=== PATIENT | male | born 1940 | race Hispanic/Latino ===

== ENCOUNTER 2016-12-02 09:05 | Outpatient (CLI) | payer MEDICARE, OTHER ==
--- NOTE | 2016-12-02 11:13 | Cat Scan Report ---
CT CHEST, ABDOMEN AND PELVIS WITH CONTRAST: 12/02/16 CLINICAL: Malignant neoplasm ascending colon. COMPARISON: 12/10/15 TECHNIQUE: Volumetric acquisition and 1.25 millimeter scan reconstructions after the uneventful intravenous injection of 100 cc of Omnipaque 300. Consent was obtained prior to the administration of the contrast. Oral contrast was also given. FINDINGS: Chest: A 2 mm right upper lobe calcified granuloma no other lung nodule. Stable elevation of the right knee diaphragm and right lower lobe subsegmental atelectasis. Normal aorta, heart and pulmonary arteries. Normal esophagus and trachea. No mediastinal or hilar lymphadenopathy.No axillary or supraclavicular lymphadenopathy. Abdomen: Stable small liver with a small left lobe. No liver mass. Contracted gallbladder with stones. Normal bile ducts. Normal stomach, duodenum, pancreas and spleen. Normal adrenal glands. Small bilateral renal cysts. The renal collecting systems are nondilated. Stable ectasia, calcification and tortuosity of the abdominal aorta. Normal inferior vena cava. No lymphadenopathy.No ascites.Normal small bowel. Status post right colectomy with a normal ileotransverse anastomosis. No ascites. Pelvis: Normal urinary bladder and rectum.Sigmoid diverticulosis but no diverticulitis. Normal prostate and seminal vesicles. No pelvic mass or lymphadenopathy. Bone windows demonstrate no suspicious bone lesion. IMPRESSION:No evidence of disease recurrence or metastasis. Cholelithiasis. Diverticulosis but no diverticulitis.
== END 2016-12-02 09:06 | disposition home or self-care (01) ==
LOC: SPVIMAG 09:05
PROVIDERS: ATTEND Internal Medicine Hematology
DX: C18.2 Malignant neoplasm of ascending colon (principal); N28.1 Cyst of kidney, acquired; K80.20 Calculus of gallbladder without cholecystitis without obstruction; K57.30 Diverticulosis of large intestine without perforation or abscess without bleeding; J84.10 Pulmonary fibrosis, unspecified; J98.11 Atelectasis; Q79.1 Other congenital malformations of diaphragm; Z90.49 Acquired absence of other specified parts of digestive tract
CPT/HCPCS: 71260; 74177; Q9967

== ENCOUNTER 2017-05-30 09:58 | Outpatient (CLI) | payer MEDICARE, OTHER ==
--- NOTE | 2017-05-30 11:44 | Fluoroscopy Report ---
Chest fluoroscopy with image: The patient presents with history of elevated right hemidiaphragm on recent chest x-ray. It is of note that we have an x-ray from 2015 also demonstrating elevation of right hemidiaphragm. On fluoroscopic visualization the patient's diaphragm does not move with normal inspiration and expiration. With a sniff test the right hemidiaphragm moves paradoxically. Impressions: Chronic paralysis of right hemidiaphragm.
== END 2017-05-30 09:59 | disposition home or self-care (01) ==
LOC: FLUORO 09:58
PROVIDERS: ATTEND Internal Medicine Critical Care Medicine
DX: J98.6 Disorders of diaphragm (principal); I11.0 Hypertensive heart disease with heart failure; I50.9 Heart failure, unspecified
CPT/HCPCS: 71023

== ENCOUNTER 2017-06-21 05:55 | Inpatient (IN) | payer MEDICARE, OTHER ==
[2017-06-21 06:50] LABS: Basophils % (Auto) 0.5 % (0.0-1.8); Eosinophils % (Auto) 3.4 % (0.0-4.3); Hematocrit 46.7 % (35.5-45.6); Hemoglobin 15.2 gm/dl (11.8-15.2); Mean Corpuscular HGB Conc 33 % (32-34); Mean Corpuscular Hemoglobin 30 pg (28-32); Mean Corpuscular Volume 92 fl (84-94); Platelet Count 302 K/mm3 (140-440); Red Blood Count 5.06 M/mm3 (3.65-5.03); Red Cell Distribution Width 14.8 % (13.2-15.2); White Blood Count 8.5 K/mm3 (4.5-11.0)
[2017-06-21 06:54] LABS: Anion Gap 20 mmol/L; Blood Urea Nitrogen 18 mg/dL (9-20); Calcium 8.5 mg/dL (8.4-10.2); Carbon Dioxide 22 mmol/L (22-30); Chloride 102.2 mmol/L (98-107); Glucose 97 mg/dL (75-100); Potassium 4.4 mmol/L (3.6-5.0); Sodium 140 mmol/L (137-145)
--- NOTE | 2017-06-21 07:53 | XRay Report ---
ROUTINE CHEST, TWO VIEWS: HISTORY: Shortness of breath. Previous CABG changes are noted. A left [id number] terminates in the mid SVC. The trachea, heart, mediastinal contour, lung orourke and bony thorax are unremarkable. IMPRESSION: Unremarkable chest x-ray. No significant change since 10/14/15.
--- NOTE | 2017-06-21 10:25 | Emergency Department Report ---
HPI - General Chief Complaint: Chest Pain Time Seen by Provider: 06/21/17 09:22 - HPI HPI: 76-year-old male with a history of coronary artery disease presents to ED with left-sided chest pain, pressure-like, starting at 5 this morning and all chemotherapy from sleep. Patient stated pain was 10 out of 10 on onset, he took 2 nitroglycerin pills and after the second one the pain is currently 4 out of 10. Patient had mild nausea on onset of pain, but doesn't have any current nausea. Patient denies any shortness of breath, diaphoresis, arm pain. Patient denies any alleviating or exacerbating factors. Patient has prior symptoms of similar pains in the past due to angina. ED Past Medical Hx - Past Medical History Previous Medical History?: Yes Hx Hypertension: Yes Hx Heart Attack/AMI: Yes (1989) Additional medical history: ABDOMINAL HERNIA, 45% colon removed - Surgical History Past Surgical History?: Yes Hx Open Heart Surgery: Yes ( -2003) - Social History Smoking Status: Former Smoker Substance Use Type: None - Medications Home Medications: Home Medications Medication Instructions Recorded Confirmed Last Taken Type Aspirin [Aspirin BABY CHEW TAB] 81 mg PO QDAY 10/14/15 06/21/17 06/20/17 History AtorvaSTATin [Lipitor] 40 mg PO QDAY 10/14/15 06/21/17 06/20/17 History Clopidogrel [Plavix] 75 mg PO QDAY 10/14/15 06/21/17 06/20/17 History Ezetimibe [Zetia] 10 mg PO QDAY 10/14/15 06/21/17 06/20/17 History ED Review of Systems ROS: Stated complaint: CHEST PAIN Other details as noted in HPI Comment: All other systems reviewed and negative Cardiovascular: chest pain Gastrointestinal: as per HPI Physical Exam - Physical Exam Vital Signs: Vital Signs 06/21/17 06/21/17 06/21/17 06:07 07:06 07:11 Temperature 98.8 F Pulse Rate 87 117 H 75 Respiratory 18 17 21 Rate Blood Pressure 153/83 146/92 O2 Sat by Pulse 97 93 Oximetry 06/21/17 06/21/17 06/21/17 07:21 07:30 07:40 Temperature Pulse Rate 77 73 Respiratory 21 19 18 Rate Blood Pressure 156/73 147/83 O2 Sat by Pulse 95 94 98 Oximetry 06/21/17 06/21/17 06/21/17 07:41 07:51 08:00 Temperature Pulse Rate 73 74 71 Respiratory 22 20 19 Rate Blood Pressure 147/83 144/83 145/83 O2 Sat by Pulse 95 94 94 Oximetry 06/21/17 08:11 Temperature Pulse Rate 74 Respiratory 25 H Rate Blood Pressure 145/83 O2 Sat by Pulse 94 Oximetry Physical Exam: - General Limitations: No Limitations General appearance: alert, in no apparent distress - Head Head exam: Present: atraumatic, normocephalic - Eye Eye exam: Present: normal appearance - ENT ENT exam: Present: mucous membranes moist - Neck Neck exam: Present: normal inspection - Respiratory Respiratory exam: Present: normal lung sounds bilaterally. Absent: respiratory distress - Cardiovascular Cardiovascular Exam: Present: regular rate, normal rhythm. Absent: systolic murmur, diastolic murmur, rubs, gallop - GI/Abdominal GI/Abdominal exam: Present: soft, normal bowel sounds - Extremities Exam Extremities exam: Present: normal inspection - Back Exam Back exam: Present: normal inspection - Neurological Exam Neurological exam: Present: alert, oriented X3, CN II-XII intact - Psychiatric Psychiatric exam: Present:normal affect - Skin Skin exam: Present: warm, dry, intact, normal color. Absent: rash ED Course Vital Signs 06/21/17 06/21/17 06/21/17 06:07 07:06 07:11 Temperature 98.8 F Pulse Rate 87 117 H 75 Respiratory 18 17 21 Rate Blood Pressure 153/83 146/92 O2 Sat by Pulse 97 93 Oximetry 06/21/17 06/21/17 06/21/17 07:21 07:30 07:40 Temperature Pulse Rate 77 73 Respiratory 21 19 18 Rate Blood Pressure 156/73 147/83 O2 Sat by Pulse 95 94 98 Oximetry 06/21/17 06/21/17 06/21/17 07:41 07:51 08:00 Temperature Pulse Rate 73 74 71 Respiratory 22 20 19 Rate Blood Pressure 147/83 144/83 145/83 O2 Sat by Pulse 95 94 94 Oximetry 06/21/17 08:11 Temperature Pulse Rate 74 Respiratory 25 H Rate Blood Pressure 145/83 O2 Sat by Pulse 94 Oximetry ED Medical Decision Making - Lab Data Result diagrams: 06/21/17 06:21 06/21/17 06:21 Critical care attestation.: If time is entered above; I have spent that time in minutes in the direct care of this critically ill patient, excluding procedure time. ED Disposition Clinical Impression: Chest pain Qualifiers: Chest pain type: other chest pain Qualified Code(s): R07.89 - Other chest pain Disposition: OP ADMIT IP TO THIS HOSP Is pt being admited?: Yes Does the pt Need Aspirin: No Condition: Stable Instructions: Chest Pain (ED) Referrals: PRIMARY CARE,MD [Primary Care Provider] - 3-5 Days
--- NOTE | 2017-06-21 10:57 | Admit Criteria Form ---
Admission Criteria Documentation: CARDIOLOGY GRG Clinical Indications for Admission to Inpatient Care ([place]/check or initial the applicable condition/criteria) Hospital admission is needed for appropriate care of the patient because of ANY ONE of the following: [ ] I. Hemodynamic instability as indicated by ALL of the following (1)(2)(3) (4)(5)(6)(7)(8)(9)(10) [ ]a) Vital sign abnormality not readily corrected by appropriate treatment with 12-24 hours for ANY ONE: [ ]i) Hypotension that persists despite appropriate treatment (eg, volume repletion) [ ]ii) Tachycardiathat persists despite appropriate tx ( e.g., analgesia, fluids, sedation as indicated [ ]iii) Orthostatic vital sign changes that persists despite appropriate treatment (eg, volume repletion) [ ]b) Vital sign abnormailty that is severe indicated by ANY ONE of the following: [ ]i) Inadequate perfusion indicated by ANY ONE of the following: [ ] 1) Lactic acidosis (> 2 mmol/L) [ ] 2) New abnormal capillary refill (> 3 seconds) [ ] 3) Reduced urine output [ ] 4) New altered mental status [ ] 5) Myocardial Ischemia [ ] 6) Other metabolic acidosis (arterial pH <7.35 ) not otherwise explained. [ ]ii) Mean arterial pressure[A] less than 60 mm Hg [ ]iii) Mean arterial pressure[A] less than 70 mm Hg after 30 minutes of appropriate treatment (eg, fluid resuscitation) [ ]iv) Sustained heart rate greater than 120 beats per minute in adult or child 6 years or older[B] [ ]v) IV inotropic or vasopressor medication required to maintain adequate blood pressure or perfusion [ ] II. Severe heart failure as indicated by ANY ONE of the following(17)(18) [ ]a) Respiratory distress [ ]b) Hypotension [ ]c) Debilitating anasarca refractory to therapy (eg, tissue breakdown with infection)[C](19) [ ]d) Cardiac arrhythmias of immediate concern [ ]e) Myocardial ischemia [ ] III. Cardiac arrhythmias or findings of immediate concern indicated by ANY ONE of the following (21)(22): [ ] a) Heart rhythms that are inherently dangerous or unstable indicated by ANY ONE of the following (23)(24)(25): [ ] i) Resuscitated ventricular fibrillation or cardiac arrest [ ] ii) Ventricular escape rhythm [ ] iii) Sustained ventricular tachycardia (30 seconds or more of ventricular rhythm at greater than 100 beats per minute) [ ] iv) Nonsustained ventricular tachycardia and ANY ONE of the following: [ ] 1) Suspected cardiac ischemia as cause or consequence of ventricular tachycardia [ ] 2) Acute myocarditis [ ] b) Unstable cardiac conduction defects indicated by ANY ONE of the following(25)(26)(27) [ ] i) Type II second-degree atrioventricular block [ ]ii) Third-degree atrioventricular block [ ]iii) New-onset left bundle branch block with suspected myocardial ischemia [ ]c) Any heart rhythm and ANY ONE of the following (23)(24)(28)(29) (30) [ ] i) Continuous long-term ECG monitoring needed (e.g., initiation of drug requiring monitoring for more than 24 hours) [ ] ii) Patient has automatic implanted cardioverter defibrillator that is repeatedly firing, malfunctioning, or in need of immediate adjustment of settings beyond the scope of ambulatory or observation care [ ]d) Heart rhythms of concern due to ANY ONE of the following: [ ] i) Hypotension [ ] ii) Respiratory distress [ ] iii) Association with other significant symptoms (e.g., bradycardia with syncope or ongoing dizziness, supraventricular tachycardia with chest pain (28)(29)(31) [ ] IV. Monitoring for cardiac contusion beyond the scope of observation care needed [A](32)(33)(34) [ ] V. Surgical or device complication (e.g., valve replacement complication , ICD disfunction or pacemaker dysfunction) (49)(50)(51)(52)(53)(54) [ ] . Inpatient palliative care needed. [F](51)(52) Also use Inpatient Palliative Care Criteria [ ] VII. Nonbacterial thrombotic (marantic) endocarditis(43)(44)(55)(56)(57) [X] VIII. Cardiology condition, symptom, or finding for which emergency and observation care has failed or are not considered appropriate. [ ] IX. Acute valvular disease requiring inpatient as indicated by ANY ONE of the following (40)(41) [ ]a) Acute valvular regurgitation (42) [ ]b) Noninfectious valvulitis (43)(44) [ ]c) Obstructive valve thrombosis (45)(46) [ ]d) Paravalvular leak(47)(48) [ ]e) Other significant valvular disorder remaining after emergency or observation level of care (as appropriate) [ ]X. Pericardial disease requiring inpatient treatment as indicated by ANY ONE of the following (35)(36)(37)(38) [ ]a) Suspected tamponade [ ]b) Hemopericardium [ ]c) Other significant pericardial disorder remaining after emergency or observation level of care (as appropriate)(39) [ ] XI. Cardiac ischemia beyond scope of emergency and observation care. [ ] XII. Cyanotic heart disease requiring inpatient care as indicated by 1 or more of the following(58)(59)(60): [ ]a) Acute onset of hypoxemia [ ]b) Exacerbation [ ] XIII. Hypertension requiring inpatient treatment as indicated by ANYONE of the following(11)(12)(13)(14): [ ]a) Severe hypertension (SBP greater than 180 mm Hg or DBP greater than 110 mm Hg, or greater than the 95th percentile for age, gender, and height in pediatric patients) that cannot be controlled (eg, to SBP less than 160 mm Hg and DBP less than 100 mm Hg) by emergency department or observation care treatment(15) [ ]b) Acute end organ damage secondary to hypertension (SBP greater than 140 mm Hg or DBP greater than 90 mm Hg) as indicated by ANYONE of the following: [ ] i) Hypertensive encephalopathy (eg, Altered mental status)(16) [ ] ii) Cerebral infarction [ ] iii) Intracranial hemorrhage [ ] iv) Myocardial ischemia or infarction [ ] v) Heart failure (eg, pulmonary edema) [ ] vi) Aortic dissection [ ] vii) Increased creatinine (new) with reduction of more than 50% in estimated glomerular filtration rate from baseline [ ] viii) Papilledema [ ] ix) Retinal hemorrhage [ ] x) Microangiopathic hemolytic anemia [ ] xi) Seizure [ ] xii) Other significant finding secondary to hypertension [ ] XIV. Complications of transplanted heart indicated by ANY ONE of the following(61): [ ]a) Acute graft rejection requiring inpatient management (eg, intravenous imunosuppression)(62)(63) [ ]b) Acute graft heart failure indicated by ANY ONE of the following(64): [ ] i) Hemodynamic instability [ ] ii) Cardiac arrhythmias of immediate concern [ ] iii) Pulmonary edema that is very severe (eg, mechanical ventilation needed, imminent or likely, need for 100% oxygen to keep oxygen saturation above 90%) [ ] iv) Pulmonary edema that is persistent as indicated by ALL of the following: [ ] 1) New need for oxygen therapy to keep oxygen saturation above 90 % (or increased FiO2 need from baseline) [ ] 2) Has not improved sufficiently with emergency department or observation care IV diuretics or other heart failure treatments[E]. [ ] iv) Altered mental status that is severe or persistent [ ] iv) Increased creatinine (new on laboratory test) with reduction of more than 50% in estimated glomerular filtration rate from baseline [ ] iv) Progressively (ongoing) rising creatinine (known from past laboratory test) with reduction of more than 25% in estimated glomerular filtration rate from baseline [ ] iv) Acute renal failure [ ] iv) Acute peripheral ischemia (eg, examination shows pulseless, cool, mottled, or cyanotic extremity) [ ] iv) Pulmonary artery catheter monitoring needed [ ] iv) Other sign or symptom of heart failure requiring inpatient treatment (ie, too severe or not responsive to outpatient and observation care treatment) [ ]c) Infection requiring inpatient management (eg, Hemodynamic instability, need for intravenous antimicrobial treatment)(66)(67)(68)(69)(70) [ ]d) Cardiac allograft vasculopathy requiring inpatient management (eg evidence of cardiacischemia)(71) [ ]e) Other complication of transplanted heart (eg, stroke, severe pulmonary hypertension, severe valvular dysfunction) requiring inpatient management(72) The original [email or web address] content created by [email or web address] has been revised. The portions of the content which have been revised are identified through the use of italic text or in bold, and [facility] has neither reviewed nor approved the modified material. All other unmodified content is copyright [employer] [facility]. Please see references footnoted in the original [employer] [facility] edition 2017 Admission Criteria Met: Yes
[2017-06-21] MEDS ORDERED: DULCOLAX PR PRN (11:19)
[2017-06-21] MEDS ORDERED: TYLENOL PO PRN (11:19)
[2017-06-21] MEDS ORDERED: NITROSTAT SL PRN (11:23)
--- NOTE | 2017-06-21 11:33 | History and Physical Report ---
<LISANDRO HEARD - Last Filed: 06/21/17 13:07> History of Present Illness Date of examination: 06/21/17 Date of admission: 06/21/2017 Chief complaint: Chest pain History of present illness: Patient is a 76-year-old male with a past medical history of hypertension, hyperlipidemia, colon cancer, hernia, abdominal aneurysm, neuropathy and quadruple bypass in 2003 who presents to emergency department for complaining of left side chest pain. The pain was located over to the left side of the chest. He noticed the pain this morning as he was getting out of bed and while the patient was walking to the bath room. He describes the quality as pressure without radiation to the shoulder, arm, back, or jaw. The pain lasted approximately around 30 minutes. The patient took SL Nitroglycerin and somewhat reliefs the pain, no aggravating factors. The painful episodes did not increase in intensity or severity during this time. The patient denies chest pain at present time. He denies shortness of breath, sweating, heart palpitations, lightheadedness, dizziness, nausea and vomiting during these episodes of pain. 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 Past History Past Medical History: hypertension, hyperlipidemia, other (colon cancer, hernia and aneurysm) Past Surgical History: CABG (quadruple) Social history: , lives with family Family history: CAD, hypertension Medications and Allergies Allergies Allergy/AdvReac Type Severity Reaction Status Date / Time No Known Allergies Allergy Unverified 10/14/15 18:05 Home Medications Medication Instructions Recorded Confirmed Last Taken Type Aspirin [Aspirin BABY CHEW TAB] 81 mg PO QDAY 10/14/15 06/21/17 06/20/17 History AtorvaSTATin [Lipitor] 40 mg PO QDAY 10/14/15 06/21/17 06/20/17 History Clopidogrel [Plavix] 75 mg PO QDAY 10/14/15 06/21/17 06/20/17 History Ezetimibe [Zetia] 10 mg PO QDAY 10/14/15 06/21/17 06/20/17 History Active Meds: Active Medications Acetaminophen (Tylenol) 650 mg PO Q4H PRN PRN Reason: Pain MILD(1-3)/Fever >100.5/PALACIO Aspirin (Aspirin) 325 mg PO QDAY [facility] Atorvastatin Calcium (Lipitor) 40 mg PO QDAY [facility] Bisacodyl (Dulcolax) 10 mg [place] QDAY PRN PRN Reason: Constipation unrelieved by MOM Clopidogrel Bisulfate (Plavix) 75 mg PO QDAY [facility] Ezetimibe (Zetia) 10 mg PO QDAY [facility] Nitroglycerin (Nitrostat) 0.4 mg SL .Q5MIN PRN PRN Reason: Chest Pain Review of Systems Constitutional: no weight loss, no weight gain, no fever Ears, nose, mouth and throat: no ear pain, no ear discharge, no tinnitis, no decreased hearing, no nose pain, no nasal congestion, no nasal discharge Cardiovascular: chest pain, shortness of breath, no orthopnea, no palpitations, no rapid/irregular heart beat, no edema Respiratory: no cough with sputum, no excessive sputum, no hemoptysis, no shortness of breath Gastrointestinal: no nausea, no vomiting, no diarrhea Genitourinary Male: no hematuria, no flank pain, no discharge, no urinary frequency, no urinary hesitancy Rectal: no pain, no incontinence, no bleeding Musculoskeletal: no neck pain, no shooting arm pain, no arm numbness/tingling, no low back pain Integumentary: no rash, no pruritis, no redness Neurological: no paralysis, no weakness, no parathesias, no numbness Psychiatric: no memory loss, no change in sleep habits, no sleep disturbances, no change in libido Endocrine: no cold intolerance, no heat intolerance, no polyphagia, no excessive thirst Hematologic/Lymphatic: no easy bruising, no easy bleeding Allergic/Immunologic: no urticaria, no allergic rhinitis Exam - Constitutional Vitals: Temp Pulse Resp BP Pulse Ox 98.8 F 74 25 H 145/83 94 06/21/17 06:07 06/21/17 08:11 06/21/17 08:11 06/21/17 08:11 06/21/17 08:11 General appearance: Present: no acute distress - EENT Eyes: Present: PERRL ENT: hearing intact - Neck Neck: Present: supple - Respiratory Respiratory effort: normal Respiratory: bilateral: CTA - Cardiovascular Heart rate: 74 Rhythm: regular Heart Sounds: Present: S1 & S2 - Extremities Extremities: no ischemia Peripheral Pulses: within normal limits - Abdominal General gastrointestinal: Present: soft, non-tender (umbilical), non-distended, hernia Male genitourinary: Present: deferred - Rectal Rectal Exam: deferred - Integumentary Integumentary: Present: clear, warm, dry - Musculoskeletal Musculoskeletal: gait normal, strength equal bilaterally - Psychiatric Psychiatric: appropriate mood/affect - Neurologic Neurologic: CNII-XII intact - Allied Health Allied health notes reviewed: nursing Results - Labs CBC & Chem 7: 06/21/17 06:21 06/21/17 06:21 Labs: Laboratory Last Values WBC 8.5 K/mm3 (4.5-11.0) 06/21/17 06:21 RBC 5.06 M/mm3 (3.65-5.03) H 06/21/17 06:21 Hgb 15.2 gm/dl (11.8-15.2) 06/21/17 06:21 Hct 46.7 % (35.5-45.6) H 06/21/17 06:21 MCV 92 fl (84-94) 06/21/17 06:21 MCH 30 pg (28-32) 06/21/17 06:21 MCHC 33 % (32-34) 06/21/17 06:21 RDW 14.8 % (13.2-15.2) 06/21/17 06:21 Plt Count 302 K/mm3 (140-440) 06/21/17 06:21 Lymph % (Auto) 29.4 % (13.4-35.0) 06/21/17 06:21 [place] % (Auto) 9.4 % (0.0-7.3) H 06/21/17 06:21 Eos % (Auto) 3.4 % (0.0-4.3) 06/21/17 06:21 Baso % (Auto) 0.5 % (0.0-1.8) 06/21/17 06:21 Lymph # 2.5 K/mm3 (1.2-5.4) 06/21/17 06:21 [place] # 0.8 K/mm3 (0.0-0.8) 06/21/17 06:21 Eos # 0.3 K/mm3 (0.0-0.4) 06/21/17 06:21 Baso # 0.0 K/mm3 (0.0-0.1) 06/21/17 06:21 Seg Neutrophils % 57.3 % (40.0-70.0) 06/21/17 06:21 Seg Neutrophils # 4.8 K/mm3 (1.8-7.7) 06/21/17 06:21 Sodium 140 mmol/L (137-145) 06/21/17 06:21 Potassium 4.4 mmol/L (3.6-5.0) 06/21/17 06:21 Chloride 102.2 mmol/L (98-107) 06/21/17 06:21 Carbon Dioxide 22 mmol/L (22-30) 06/21/17 06:21 Anion Gap 20 mmol/L 06/21/17 06:21 BUN 18 mg/dL (9-20) 06/21/17 06:21 Creatinine 0.9 mg/dL (0.8-1.5) 06/21/17 06:21 Estimated GFR > 60 ml/min 06/21/17 06:21 BUN/Creatinine Ratio 20.00 % 06/21/17 06:21 Glucose 97 mg/dL (75-100) 06/21/17 06:21 Calcium 8.5 mg/dL (8.4-10.2) 06/21/17 06:21 Troponin T < 0.010 ng/mL (0.00-0.029) 06/21/17 09:13 NT-Pro-B Natriuret Pep 136.8 pg/mL (0-900) 06/21/17 09:13 - Imaging and Cardiology Chest x-ray: image reviewed (unremarkable.) Assessment and Plan Assessment and plan: Patient is a 76-year-old male with a past medical history of hypertension, hyperlipidemia, colon cancer, hernia, abdominal aneurysm, neuropathy and quadruple bypass in 2003 who presents to emergency department for complaining of left side chest pain.Chest x-ray-no focal infiltrates, no pneumothorax. Cardiac enzyme negative 3. EKG Normal Sinus rhythm no ST elevation or T-wave inversion Chest Pain We will admit to telemetry floor. EKG unchanged from pervious; sinus rhythm, HR 85, axis, intervals, QRS complexes , ST-T waves (patient has T-wave inversions throughout the lateral leads and some nonspecific ST-T changes. Negative cardiac enzyme X2 Start on aspirin Nitroglycerin when necessary Morphine ordered for pain Nothing by mouth after midnight Stress test ordered. Cardiology evaluation Worsening of coronary syndrome continue on Aspirin Continue on Lipitor, Zetia and Plavix Complete lipid panel ordered Cardiology evaluation Hypertension Resume antihypertensive pills Closely monitor blood pressure Hyperlipidemia Resume home antilipid agents. Colon cancer Remission Continue present treatment DVT prophylaxis. Patient on Plavix. Advance Directives: Yes VTE prophylaxis?: Chemical Contraindication Mechanical VTE Prophylaxis: Treatment Not Indicated Plan of care discussed with patient/family: Yes <CHEL RILEY R - Last Filed: 06/21/17 13:41> History of Present Illness Date of admission: 06/21/17 11:19 Medications and Allergies Active Meds: Active Medications Acetaminophen (Tylenol) 650 mg PO Q4H PRN PRN Reason: Pain MILD(1-3)/Fever >100.5/PALACIO Aspirin (Aspirin) 325 mg PO QDAY [facility] Last Admin: 06/21/17 12:02 Dose: 325 mg Atorvastatin Calcium (Lipitor) 40 mg PO QDAY [facility] Bisacodyl (Dulcolax) 10 mg [place] QDAY PRN PRN Reason: Constipation unrelieved by MOM Clopidogrel Bisulfate (Plavix) 75 mg PO QDAY [facility] Ezetimibe (Zetia) 10 mg PO QDAY [facility] Nitroglycerin (Nitrostat) 0.4 mg SL .Q5MIN PRN PRN Reason: Chest Pain Exam - Constitutional Vitals: Temp Pulse Resp BP Pulse Ox 98.8 F 77 19 143/69 95 06/21/17 06:07 06/21/17 12:01 06/21/17 12:01 06/21/17 12:01 06/21/17 12:01 Results - Labs CBC & Chem 7: 06/21/17 06:21 06/21/17 06:21 Labs: Laboratory Last Values WBC 8.5 K/mm3 (4.5-11.0) 06/21/17 06:21 RBC 5.06 M/mm3 (3.65-5.03) H 06/21/17 06:21 Hgb 15.2 gm/dl (11.8-15.2) 06/21/17 06:21 Hct 46.7 % (35.5-45.6) H 06/21/17 06:21 MCV 92 fl (84-94) 06/21/17 06:21 MCH 30 pg (28-32) 06/21/17 06:21 MCHC 33 % (32-34) 06/21/17 06:21 RDW 14.8 % (13.2-15.2) 06/21/17 06:21 Plt Count 302 K/mm3 (140-440) 06/21/17 06:21 Lymph % (Auto) 29.4 % (13.4-35.0) 06/21/17 06:21 [place] % (Auto) 9.4 % (0.0-7.3) H 06/21/17 06:21 Eos % (Auto) 3.4 % (0.0-4.3) 06/21/17 06:21 Baso % (Auto) 0.5 % (0.0-1.8) 06/21/17 06:21 Lymph # 2.5 K/mm3 (1.2-5.4) 06/21/17 06:21 [place] # 0.8 K/mm3 (0.0-0.8) 06/21/17 06:21 Eos # 0.3 K/mm3 (0.0-0.4) 06/21/17 06:21 Baso # 0.0 K/mm3 (0.0-0.1) 06/21/17 06:21 Seg Neutrophils % 57.3 % (40.0-70.0) 06/21/17 06:21 Seg Neutrophils # 4.8 K/mm3 (1.8-7.7) 06/21/17 06:21 Sodium 140 mmol/L (137-145) 06/21/17 06:21 Potassium 4.4 mmol/L (3.6-5.0) 06/21/17 06:21 Chloride 102.2 mmol/L (98-107) 06/21/17 06:21 Carbon Dioxide 22 mmol/L (22-30) 06/21/17 06:21 Anion Gap 20 mmol/L 06/21/17 06:21 BUN 18 mg/dL (9-20) 06/21/17 06:21 Creatinine 0.9 mg/dL (0.8-1.5) 06/21/17 06:21 Estimated GFR > 60 ml/min 06/21/17 06:21 BUN/Creatinine Ratio 20.00 % 06/21/17 06:21 Glucose 97 mg/dL (75-100) 06/21/17 06:21 Calcium 8.5 mg/dL (8.4-10.2) 06/21/17 06:21 Troponin T < 0.010 ng/mL (0.00-0.029) 06/21/17 09:13 NT-Pro-B Natriuret Pep 136.8 pg/mL (0-900) 06/21/17 09:13 Assessment and Plan Assessment and plan: Patient seen and examined, agree with Nurse practitioner's assessment and plan.
[2017-06-21] MEDS: ASPIRIN PO SCH (12:02)
[2017-06-21] MEDS ORDERED: ASPIRIN ONE (12:02)
[2017-06-22] MEDS ORDERED: APRESOLINE IV PRN (05:14)
[2017-06-22 06:36] LABS: Basophils % (Auto) 0.4 % (0.0-1.8); Eosinophils % (Auto) 2.9 % (0.0-4.3); Hematocrit 42.9 % (35.5-45.6); Hemoglobin 14.5 gm/dl (11.8-15.2); Mean Corpuscular HGB Conc 34 % (32-34); Mean Corpuscular Hemoglobin 31 pg (28-32); Mean Corpuscular Volume 92 fl (84-94); Platelet Count 246 K/mm3 (140-440); Red Blood Count 4.69 M/mm3 (3.65-5.03); Red Cell Distribution Width 14.5 % (13.2-15.2); White Blood Count 6.2 K/mm3 (4.5-11.0)
[2017-06-22 06:57] LABS: Anion Gap 18 mmol/L; Blood Urea Nitrogen 12 mg/dL (9-20); Calcium 8.4 mg/dL (8.4-10.2); Carbon Dioxide 24 mmol/L (22-30); Chloride 101.8 mmol/L (98-107); Cholesterol 124 mg/dL (50-199); Glucose 80 mg/dL (75-100); HDL Cholesterol 52 mg/dL (40-59); LDL Cholesterol,Direct 54 mg/dL (50-130); Potassium 4.2 mmol/L (3.6-5.0); Sodium 140 mmol/L (137-145); Triglycerides 93 mg/dL (2-149)
[2017-06-22] MEDS ORDERED: LEXISCAN IV ONE ×2 (09:45)
[2017-06-22] MEDS ORDERED: ZETIA PO SCH (10:00)
[2017-06-22] MEDS ORDERED: PLAVIX PO SCH (10:00)
[2017-06-22] MEDS ORDERED: ASPIRIN PO SCH (10:00)
--- NOTE | 2017-06-22 10:58 | Consultation ---
History of Present Illness Consult date: 06/22/17 Consult reason: chest pain History of present illness: 76 year old male with past medical history of CAD s/p CABG presenting with recurrent episodes of chest pain relieved with SL NTG. Past History Past Medical History: hypertension, hyperlipidemia, other (colon cancer, hernia and aneurysm) Past Surgical History: CABG (quadruple) Social history: , lives with family Family history: CAD, hypertension Medications and Allergies Allergies Allergy/AdvReac Type Severity Reaction Status Date / Time No Known Allergies Allergy Unverified 10/14/15 18:05 Home Medications Medication Instructions Recorded Confirmed Last Taken Type Aspirin [Aspirin BABY CHEW TAB] 81 mg PO QDAY 10/14/15 06/21/17 06/20/17 History AtorvaSTATin [Lipitor] 40 mg PO QDAY 10/14/15 06/21/17 06/20/17 History Clopidogrel [Plavix] 75 mg PO QDAY 10/14/15 06/21/17 06/20/17 History Ezetimibe [Zetia] 10 mg PO QDAY 10/14/15 06/21/17 06/20/17 History Active Meds: Active Medications Acetaminophen (Tylenol) 650 mg PO Q4H PRN PRN Reason: Pain MILD(1-3)/Fever >100.5/PALACIO Aspirin (Aspirin) 325 mg PO QDAY [facility] Last Admin: 06/21/17 12:02 Dose: 325 mg Atorvastatin Calcium (Lipitor) 40 mg PO QDAY [facility] Bisacodyl (Dulcolax) 10 mg [place] QDAY PRN PRN Reason: Constipation unrelieved by MOM Clopidogrel Bisulfate (Plavix) 75 mg PO QDAY [facility] Ezetimibe (Zetia) 10 mg PO QDAY [facility] Hydralazine HCl (Apresoline) 10 mg IV Q4HR PRN PRN Reason: SBP>160 Last Admin: 06/22/17 05:29 Dose: 10 mg Nitroglycerin (Nitrostat) 0.4 mg SL .Q5MIN PRN PRN Reason: Chest Pain Review of Systems All systems: negative Physical Examination Vital Signs Temp Pulse Resp BP Pulse Ox 98.8 F 87 18 153/83 97 06/21/17 06:07 06/21/17 06:07 06/21/17 06:07 06/21/17 06:07 06/21/17 06:07 General appearance: no acute distress HEENT: Positive: PERRL Neck: Positive: neck supple Cardiac: Positive: Reg Rate and Rhythm Lungs: Positive: Normal Exam Results 06/22/17 05:22 06/22/17 05:22 Lipids 06/22/17 Range/Units 05:22 Triglycerides 93 (2-149) mg/dL Cholesterol 124 (50-199) mg/dL HDL Cholesterol 52 (40-59) mg/dL Cholesterol/HDL Ratio 2.38 % CBC 06/22/17 Range/Units 05:22 WBC 6.2 (4.5-11.0) K/mm3 RBC 4.69 (3.65-5.03) M/mm3 Hgb 14.5 (11.8-15.2) gm/dl Hct 42.9 (35.5-45.6) % Plt Count 246 (140-440) K/mm3 Lymph # 1.9 (1.2-5.4) K/mm3 [place] # 0.6 (0.0-0.8) K/mm3 Eos # 0.2 (0.0-0.4) K/mm3 Baso # 0.0 (0.0-0.1) K/mm3 Comprehensive Metabolic Panel 06/22/17 Range/Units 05:22 Sodium 140 (137-145) mmol/L Potassium 4.2 (3.6-5.0) mmol/L Chloride 101.8 (98-107) mmol/L Carbon Dioxide 24 (22-30) mmol/L BUN 12 (9-20) mg/dL Creatinine 0.6 L (0.8-1.5) mg/dL Glucose 80 (75-100) mg/dL Calcium 8.4 (8.4-10.2) mg/dL EKG interpretations - Telemetry EKG Rhythm: Sinus Rhythm Assessment and Plan 1. Peripheral vascular disease, unspecified 50-69% bilateral carotid artery disease 12/2014 2.7 cm infrarenal AAA 2. Dyspnea, chronic (CCS class II) 3. Hyperlipidemia, 4. Essential (primary) hypertension, controlled 5. 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 Edema, chronic 7. Angina - recurrent No ECG changes Romelia are negative Normal stress test Recommendations: May go home cardiac escalona Follow-up as outpatient
[2017-06-22] MEDS: ASPIRIN PO SCH (13:22)
--- NOTE | 2017-06-22 16:02 | Discharge Summary ---
Providers - Providers Date of Admission: 06/21/17 11:19 Date of discharge: 06/22/17 Attending physician: CHEL ESCALONA 06/21/17 11:23 Consult to Physician [CONS] Routine Consulting Provider: GEORGINA MORELAND Reason For Exam: Chest pain Place consult to:: yes Notified:: yes Phone number called:: yes Primary care physician: SECOND CRUSHER Hospitalization Condition: Stable Hospital course: Patient is a 76-year-old male with a past medical history of hypertension, hyperlipidemia, colon cancer, hernia, abdominal aneurysm, neuropathy and quadruple bypass in 2003 who presents to emergency department for complaining of left side chest pain.Chest x-ray-no focal infiltrates, no pneumothorax. Cardiac enzyme negative 3. EKG Normal Sinus rhythm no ST elevation or T-wave inversion Chest Pain, stable angina We will admit to telemetry floor. EKG unchanged from pervious; sinus rhythm, HR 85, axis, intervals, QRS complexes , ST-T waves (patient has T-wave inversions throughout the lateral leads and some nonspecific ST-T changes. Negative cardiac enzyme X2 Start on aspirin Nitroglycerin when necessary Morphine ordered for pain Nothing by mouth after midnight Stress test ordered. Cardiology evaluation CAD continue on Aspirin Continue on Lipitor, Zetia and Plavix Complete lipid panel ordered Cardiology evaluation Hypertension Resume antihypertensive pills Closely monitor blood pressure Hyperlipidemia Resume home antilipid agents. Colon cancer Remission Continue present treatment per [facility], Dr. Moreland: "1. Peripheral vascular disease, unspecified 50-69% bilateral carotid artery disease 12/2014 2.7 cm infrarenal AAA 2. Dyspnea, chronic (CCS class II) 3. Hyperlipidemia, 4. Essential (primary) hypertension, controlled 5. 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 Edema, chronic 7. Angina - recurrent No ECG changes Romelia are negative Normal stress test Recommendations: May go home cardiac escalona Follow-up as outpatient" Disposition: TO HOME OR SELFCARE Time spent for discharge: 37 minutes Core Measure Documentation - Palliative Care Palliative Care/ Comfort Measures: Not Applicable - Core Measures Any of the following diagnoses?: none - VTE Discharge Requirements Deep Vein Thrombosis/Pulmonary Embolism Present on Admission: No Has pt received <5 days of overlap therapy or INR<2.0: No Anticoagulant overlap therapy prescribed at discharge: No Contraindication No Overlap Therapy order at DC: Not Indicated Exam - Physical Exam Narrative exam: GEN: WDWN, NAD, AWAKE, ALERT, ORIENTATED 3 HEENT: NCAT, EOMI, PERRL, OP Clear NECK: supple, no adenopathy, no thyromegaly, no JVD CVS/HEART: RRR, NORMAL S1S2, NO JVD, pulses present bilaterally CHEST/LUNGS: CTA B, Symmetrical chest expansion, good air entry bilaterally GI/Abdomen: soft, NTND, good bowel sounds, no guarding or rebound /Bladder: no suprapubic tenderness, no CVA or paraspinal tenderness EXT/Skin: no c/c/e, no significant edema or obvious rash MSK: FROM x 4 Neuro: CN 2-12 grossly intact, no new focal deficits Psych: calm - Constitutional Vitals: Temp Pulse Resp BP Pulse Ox 97.9 F 82 20 112/67 95 06/22/17 11:05 06/22/17 11:05 06/22/17 11:05 06/22/17 11:05 06/22/17 11:05 Plan Activity: other (no strenous activity until cleared by cardiology) Follow up with: NICHOLAS WEEMS MD [Primary Care Provider] - 3-5 Days GEORGINA MORELAND MD [Staff Physician] - 14 Days
[2017-06-22 17:23] VITALS: BP 144/70
--- NOTE | 2017-06-23 00:28 | Treadmill Report ---
INDICATION: Chest pain. ORDERING PHYSICIAN: Mir Evans MD FINDINGS: There is no scintigraphic evidence of myocardial ischemia. The left ventricle is normal in size and systolic function and left ventricular ejection fraction is measured at 73% with normal wall motion and wall thickening. CONCLUSION: Normal perfusion scan. JOB# [id number] MANDO/NTS
== END 2017-06-22 19:05 | disposition home or self-care (01) | DRG 303 ==
LOC: ED 05:55 → 4A 11:19
PROVIDERS: ADMIT Internal Medicine; ATTEND Internal Medicine
DX: I25.719 Atherosclerosis of autologous vein coronary artery bypass graft(s) with unspecified angina pectoris (principal); I10 Essential (primary) hypertension; I25.2 Old myocardial infarction; Z87.891 Personal history of nicotine dependence; Z79.82 Long term (current) use of aspirin; E78.5 Hyperlipidemia, unspecified; Z85.038 Personal history of other malignant neoplasm of large intestine; Z82.49 Family history of ischemic heart disease and other diseases of the circulatory system; Z95.1 Presence of aortocoronary bypass graft; I73.9 Peripheral vascular disease, unspecified
CPT/HCPCS: 36415; 71020; 78452; 80048; 80061; 83880; 84484; 85025; 93005; 93010; 93017; A9270-GY; A9502; J0360; J2785

== ENCOUNTER 2017-11-24 08:06 | Outpatient (CLI) | payer MEDICARE, OTHER ==
--- NOTE | 2017-11-24 12:34 | Cat Scan Report ---
CT CHEST, ABDOMEN AND PELVIS WITH CONTRAST: 11/24/17 08:06:00 CLINICAL: Colon cancer. Malignant neoplasm of ascending colon. COMPARISON: 12/02/16 TECHNIQUE: Volumetric acquisition and 1.25 millimeter scan reconstructions after the uneventful intravenous injection of 100 cc of Omnipaque 300. Consent was obtained prior to the administration of the contrast. Oral contrast was also given. FINDINGS: Chest: A 2 mm calcified granuloma of the right upper lobe and no other lung nodule or mass. Right lower lobe subsegmental atelectasis. No pleural effusion. Normal heart status post CABG. Normal aorta and pulmonary arteries. Normal esophagus and trachea. No mediastinal or hilar lymphadenopathy.No axillary or supraclavicular lymphadenopathy. A left [id number] tip is in the distal SVC. Abdomen: The liver is small with an atrophic left lobe. 2 areas of focal fat at the anterior margin of medial and lateral segments of the left lobe. Bile ducts are normal. The gallbladder is contracted with stones. Normal stomach, duodenum, pancreas and spleen. Bilateral benign renal cysts and a dominant 2.6 cm lower pole cyst. The renal collecting systems and ureters are nondilated. The adrenal glands are normal. Aortic calcification and tortuosity. The small bowel is normal. Status post right hemicolectomy with a normal ileotransverse anastomosis.No ascites.No lymphadenopathy. Pelvis: Normal urinary bladder, prostate and rectum.Sigmoid diverticulosis but no diverticulitis. Surgical sutures in the left lower quadrant.. Bone windows demonstrate no suspicious bone lesion. IMPRESSION:1. No evidence of disease recurrence or metastasis. 2. Cholelithiasis but no acute cholecystitis. 3. Benign focal fat of the left hepatic lobe. 4. Benign renal cysts. 5. Status post right hemicolectomy with normal anastomosis. 6. Sigmoid diverticulosis but no diverticulitis. 7. Status post left inguinal hernia repair.
== END 2017-11-24 08:07 | disposition home or self-care (01) ==
LOC: SPVIMAG 08:06
PROVIDERS: ATTEND Internal Medicine Hematology
DX: C18.2 Malignant neoplasm of ascending colon (principal); K80.20 Calculus of gallbladder without cholecystitis without obstruction; N28.1 Cyst of kidney, acquired; K57.30 Diverticulosis of large intestine without perforation or abscess without bleeding; J84.10 Pulmonary fibrosis, unspecified; J98.11 Atelectasis; I70.0 Atherosclerosis of aorta; Z90.49 Acquired absence of other specified parts of digestive tract; Z98.890 Other specified postprocedural states
CPT/HCPCS: 71260; 74177; Q9967

== ENCOUNTER 2019-12-07 11:06 | Outpatient (CLI) | payer MEDICARE, OTHER ==
[2019-12-07 12:17] LABS: Blood Urea Nitrogen 12 mg/dL (9-20)
--- NOTE | 2019-12-07 13:38 | Cat Scan Report ---
CT ABDOMEN AND PELVIS WITH CONTRAST HISTORY: C18.2Malignant neoplasm of ascending colon COMPARISON: 12/08/2018 TECHNIQUE: Axial CT images were obtained through the abdomen and pelvis after 100 cc of Omnipaque 300 intravenously. Sagittal and coronal reformatted images. All CT scans at this location are performed using CT dose reduction for ALARA by means of automated exposure control. FINDINGS: CT ABDOMEN: Lung Bases: The right hemidiaphragm remains mildly elevated. There is mild compressive atelectasis at the right lung base. Trace right pleural effusion. The left lung base is clear. No pulmonary nodule is detected. 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 No suspicious liver lesion is detecte d. Biliary: The gallbladder is collapsed and contains 1 or 2 partially calcified gallstones. No biliary dilatation. Spleen: No significant abnormality. Unenlarged. Pancreas: No significant abnormality. Adrenals: No significant abnormality. Kidneys: Few scattered simple cysts in both kidneys are not significantly unchanged. The largest cyst is exophytic from the mid left kidney measuring 3.1 cm. No hydronephrosis. Lymphatics: No lymphadenopathy. Vasculature: Mild diffuse aortic calcifications are noted. No aneurysm. Bowel/Peritoneum: Right hemicolectomy changes are suspected. There is moderate diverticulosis of the distal colon. No evidence for recurrent GI mass, inflammation or obstruction. No free fluid, free air or abscess. CT PELVIS: : The bladder, distal ureters and prostate gland are unremarkable. Osseous Structures: The bony structures are demineralized with mild degenerative changes throughout t he spine. No suspicious bony lesion is detected. Additional Findings: None IMPRESSION: No significant change since 12/08/2018 examination. No recurrent or metastatic disease is identified i n the abdomen or pelvis. Trace right pleural effusion and right basilar atelectasis/scarring, unchanged. Stable bilateral renal cysts. Cholelithiasis. Diverticulosis of the distal colon. Signer Name: Tomer Prince Jr, MD Signed: 12/07/2019 1:34 PM Workstation Name: [id number]
== END 2019-12-07 11:07 | disposition home or self-care (01) ==
LOC: CT 11:06
PROVIDERS: ATTEND Internal Medicine Hematology
DX: K57.30 Diverticulosis of large intestine without perforation or abscess without bleeding (principal); K80.20 Calculus of gallbladder without cholecystitis without obstruction; N28.1 Cyst of kidney, acquired; J98.11 Atelectasis; Q44.7 Other congenital malformations of liver; I70.0 Atherosclerosis of aorta; M47.899 Other spondylosis, site unspecified; I71.4 Abdominal aortic aneurysm, without rupture; C18.2 Malignant neoplasm of ascending colon
CPT/HCPCS: 36415; 74177; 82565; 84520; Q9967